=== PATIENT | male | born 1995 | race Two or more races ===

== ENCOUNTER 2021-07-29 22:11 | Emergency (ER) | payer SELFPAY ==
[~2021-07-29] VITALS: Ht 172.7 cm; Wt 68.0 kg
[2021-07-29 22:31] VITALS: BP 119/55
== END 2021-07-30 00:04 | disposition left against medical advice (07) ==
LOC: ER 22:14
DX: S09.90XA Unspecified injury of head, initial encounter (principal); Z53.21 Procedure and treatment not carried out due to patient leaving prior to being seen by health care provider; V86.56XA Driver of dirt bike or motor/cross bike injured in nontraffic accident, initial encounter; Y93.89 Activity, other specified; Y92.89 Other specified places as the place of occurrence of the external cause; Y99.8 Other external cause status